=== PATIENT | female | born 1975 | race Caucasian/White ===

== ENCOUNTER 2019-01-12 10:57 | Emergency (ER) | payer SELFPAY ==
[~2019-01-12] VITALS: Ht 154.9 cm; Wt 61.2 kg
--- OUTSIDE RECORDS SUMMARY | 2019-01-12 11:01 | XMS REPORT | Continuity of Care Document ---
Author Organization Unknown Address Unknown Phone Unavailable Allergies There is no data. Medications There is no data. Problems There is no data. Procedures There is no data. Results There is no data. Encounters ACCT No. Visit Date/Time Discharge Status Pt. Type Provider Facility Loc./Unit Complaint [id number] 10/28/2018 12:40:00 10/28/2018 23:59:59 [facility] Outpatient [facility]
[2019-01-12] MEDS ORDERED: VRAYLAR (11:14)
--- NOTE | 2019-01-12 11:16 | ED EENT ---
History of Present Illness General Chief Complaint: Dental Problems/Pain Stated Complaint: DENTAL PAIN Source: patient Exam Limitations: no limitations History of Present Illness Date Seen by Provider: Jan 12, 2019 Time Seen by Provider: 11:05 Initial Comments The patient is a pleasant 43-year-old female who presents for evaluation of left upper dental pain. She states this been going on for "while". She contacted the dental office in [place] and they recommended coming to the emergency department to be started on antibiotics prior to having a tooth pulled. She has noticed a small stanton or pimple-like lesion on the gums. She is alert and oriented 4, calm, and appears to be in no distress. She denies any fevers or chills, facial swelling, difficulty swallowing, or difficulty breathing. Timing/Duration: gradual Severity: moderate Location: mouth Prearrival Treatment: no prearrival treatment Allergies and Home Medications Patient Home Medication List Home Medication List Reviewed: Yes Review of Systems Review of Systems Constitutional: no symptoms reported Eyes: No Symptoms Reported Ears: No Symptoms Reported Nose: no symptoms reported Mouth: other (dental pain) Throat: no symptoms reported Respiratory: no symptoms reported Cardiovascular: no symptoms reported Gastrointestinal: no symptoms reported Musculoskeletal: no symptoms reported Skin: no symptoms reported Neurological: No Symptoms Reported Hematologic/Lymphatic: No Symptoms Reported Immunological/Allergic: no symptoms reported All Other Systems Reviewed Negative Unless Noted: Yes Past Hrwxnzi-Szsonj-Uzspfp Hx Past Med/Social Hx: Reviewed Nursing Past Med/Soc Hx Physical Exam Height, Weight, BMI Height: '" Weight: lbs. oz. kg; BMI Method: General Appearance: WD/WN, no apparent distress Eyes: bilateral eye PERRL, bilateral eye EOMI Nose: normal inspection Mouth/Throat: other (left upper tooth with dental decay and partial fracture, there is mild gingival swelling lateral to this with a small single pustule, no fluctuance or sign of palpable abscess, no trismus, floor of mouth is soft and unremarkable) Neck: non-tender, full range of motion, supple, normal inspection Cardiovascular: regular rate, rhythm, no edema, no gallop, no JVD Respiratory: normal breath sounds, no respiratory distress Neurologic/Psychiatric: needle leader II-XII nml as tested, alert, normal mood/affect, oriented x 3 Skin: normal color, warm/dry Progress/Results/Core Measures Progress Progress Note : Progress Note @1115 - patient will be given the first dose of antibiotics here and will be sent home with additional prescriptions for antibiotics and pain medications. Encouraged the patient to make an appointment with her dentist. No indication for incision and drainage at this time. She does verbalize understanding with the plan is stable for discharge at this time. Departure Impression Primary Impression: Dental abscess Additional Impressions: Dental caries Chronic pain Disposition: HOME, SELF-CARE Condition: Stable Departure-Patient Inst. Referrals: NO,LOCAL PHYSICIAN (PCP) Primary Care Physician [facility] Patient Instructions: Fractured Tooth (DC), Dental Pain, Tooth Abscess (DC) Add. Discharge Instructions: Follow-up with your dentist in the next 1-2 days. Typically prescribed medication as directed. Return to the emergency department for new or worsening symptoms. Scripts Tramadol HCl (Ultram) 50 Mg Tablet 50 MG PO Q6H for 4 Days, TAB Prov: DOLLY CHAIREZ DO 01/12/19 Penicillin V Potassium (Penicillin V Potassium) 500 Mg Tablet 500 MG PO QID for 7 Days, #28 TAB Prov: DOLLY CHAIREZ DO 01/12/19 DOLLY CHAIREZ DO Jan 12, 2019 11:16
[2019-01-12] MEDS ORDERED: PENI500T PO (11:21)
[2019-01-12] MEDS ORDERED: TRAM-42 PO (11:22)
[2019-01-12] MEDS ORDERED: AUGMENTIN 875 MG TAB (AMOXICILLIN/CLAVULANATE) ONE (11:25)
[2019-01-12] MEDS ORDERED: PENICILLIN V K 250 MG TAB PO ONE (11:30)
[2019-01-12] MEDS ORDERED: AUGMENTIN 875 MG TAB (AMOXICILLIN/CLAVULANATE) PO SCH (11:30)
[2019-01-12 11:35] VITALS: BP 129/84
== END 2019-01-12 11:35 | disposition home or self-care (01) ==
LOC: ER FS 10:59
DX: K02.9 Dental caries, unspecified (principal); K04.7 Periapical abscess without sinus; G89.29 Other chronic pain
CPT/HCPCS: 99283

== ENCOUNTER 2019-03-13 16:30 | Emergency (ER) | payer SELFPAY ==
[~2019-03-13] VITALS: Ht 154.9 cm; Wt 61.4 kg
[~2019-03-13 16:30] MED LIST: PENI500T PO; TRAM-42 PO; VRAYLAR
[2019-03-13] MEDS ORDERED: BACITRACIN OINTMENT 28 GM TUBE TOP SCH (16:45)
--- NOTE | 2019-03-13 16:50 | ED Integumentary General ---
General Chief Complaint: Bite-Animal/Human/Insect Stated Complaint: BUG BITES Source: patient Exam Limitations: no limitations History of Present Illness Date Seen by Provider: Mar 13, 2019 Time Seen by Provider: 16:42 Initial Comments The patient is a 43-year-old female who presents for evaluation of itching skin lesions which she noticed a few days ago. The patient does admit to methamphetamine abuse within the last few days. She does state that she thought she saw some bugs crawling into her skin. She denies suicidal or homicidal thoughts and is somewhat anxious but is answering questions appropriately. She does admit to itching her skin frequently. She has a daughter at home who does not have any similar symptoms despite sharing a bed. She denies history of bedbug or scabies infections. Timing/Duration: week Severity: moderate Location: face, torso, extremities Possible Cause: no cause identified Modifying Factors: improves with scratching (Better) Associated Symptoms: denies symptoms Allergies and Home Medications Allergies Coded Allergies: No Known Drug Allergies (Unverified , 01/12/19) Home Medications Penicillin V Potassium 500 Mg Tablet, 500 MG PO QID Prescribed by: DOLLY CHAIREZ on 01/12/19 1121 Tramadol HCl 50 Mg Tablet, 50 MG PO Q6H Prescribed by: DOLLY CHAIREZ on 01/12/19 1122 Patient Home Medication List Home Medication List Reviewed: Yes Review of Systems Review of Systems Constitutional: no symptoms reported EENTM: no symptoms reported Respiratory: no symptoms reported Cardiovascular: no symptoms reported Gastrointestinal: no symptoms reported Genitourinary: no symptoms reported Musculoskeletal: no symptoms reported Skin: lesions Psychiatric/Neurological: No Symptoms Reported Endocrine: No Symptoms Reported Hematologic/Lymphatic: No Symptoms Reported All Other Systems Reviewed Negative Unless Noted: Yes Past Kgodzin-Ukjzgw-Zuibxo Hx Past Med/Social Hx: Reviewed Nursing Past Med/Soc Hx Patient Social History Recent Hopitalizations: No Seasonal Allergies Seasonal Allergies: No Past Medical History Surgeries: Yes (Ear tubes x 2, LEEP) Section, Gallbladder Respiratory: No Cardiac: No Neurological: No Genitourinary: No Gastrointestinal: No Musculoskeletal: No Endocrine: No HEENT: No Cancer: No Psychosocial: Yes Bipolar Integumentary: No Blood Disorders: No Physical Exam Vital Signs Capillary Refill : General Appearance: WD/WN, no apparent distress HEENT: PERRL/EOMI, TMs normal Neck: non-tender, full range of motion Cardiovascular: regular rate, rhythm, no JVD Respiratory: chest non-tender, lungs clear, normal breath sounds, no respiratory distress Gastrointestinal: normal bowel sounds, non tender, soft Extremities: normal range of motion, non-tender, normal inspection, no pedal edema Neurologic/Psychiatric: sod stripper II-XII nml as tested, alert, normal mood/affect, oriented x 3 Skin: normal color, warm/dry, other (multiple skin excoriations and lesions noted to the face, left neck, lower back, and extremities, these do appear consistent with methamphetamine-related sores) Progress/Results/Core Measures Progress Progress Note : Progress Note @1650 - The patient that her lesions are almost certainly related and/or caused by the methamphetamine abuse. However they could possibly be caused by something like scabies. I feel like it will benefit the patient state of mind to be treated for scabies even though this is unlikely. She'll be given a prescription for permethrin cream and has been advised to follow-up with her PCP and to return to the emergency department for new or worsening symptoms. Departure Impression Primary Impression: Methamphetamine abuse Additional Impression: Skin lesions Disposition: HOME, SELF-CARE Condition: Stable Departure-Patient Inst. Decision time for Depature: 16:50 Referrals: NO,LOCAL PHYSICIAN (PCP/Family) Primary Care Physician Patient Instructions: Drug Abuse Treatment, Drug Abuse and Drug Addiction (DC) Add. Discharge Instructions: Take the prescribed medication as directed. Return to the emergency Department immediately for new or worsening symptoms. Scripts Permethrin (Permethrin) 60 Gm Cream..g. 60 GM TP ONCE for 1 Day, TUBE Apply topically to entire body, wash off after 8-14 hours. Repeat 1 week later. Prov: DOLLY CHAIREZ DO 03/13/19 DOLLY CHAIREZ DO Mar 13, 2019 16:50
[2019-03-13] MEDS ORDERED: PERM60CR4 TP (16:57)
[2019-03-13 17:11] VITALS: BP 158/89
== END 2019-03-13 17:13 | disposition home or self-care (01) ==
LOC: EDUNIT# 16:30 → ER FS 16:31
DX: L98.9 Disorder of the skin and subcutaneous tissue, unspecified (principal); F15.10 Other stimulant abuse, uncomplicated; F31.9 Bipolar disorder, unspecified
CPT/HCPCS: 99283

== ENCOUNTER 2019-06-21 22:33 | Emergency (ER) | payer SELFPAY ==
[~2019-06-21] VITALS: Ht 154.9 cm; Wt 64.0 kg
[~2019-06-21 22:33] MED LIST changes: +PERM60CR4 TP
[2019-06-21] MEDS ORDERED: NS IV 1000 ML 1,000 ML IV ONE (23:09)
[2019-06-21 23:24] LABS: BASOPHILS # (AUTO) 0.1 10^3/uL (0.0-0.1); BASOPHILS % (AUTO) 1 % (0-10); EOSINOPHILS # (AUTO) 0.3 10^3/uL (0.0-0.3); EOSINOPHILS % (AUTO) 4 % (0-10); HEMATOCRIT 42 % (35-52); HEMOGLOBIN 13.7 G/DL (11.5-16.0); LYMPHOCYTES # (AUTO) 4.3 X 10^3 (1.0-4.0); LYMPHOCYTES % (AUTO) 45 % (12-44); MEAN CORPUSCULAR HEMOGLOBIN 30 PG (25-34); MEAN CORPUSCULAR HGB CONC 33 G/DL (32-36); MEAN CORPUSCULAR VOLUME 91 FL (80-99); MEAN PLATELET VOLUME 8.6 FL (7.4-10.4); MONOCYTES # (AUTO) 0.7 X 10^3 (0.0-1.0); MONOCYTES % (AUTO) 8 % (0-12); NEUTROPHILS # (AUTO) 4.3 X 10^3 (1.8-7.8); NEUTROPHILS % (AUTO) 44 % (42-75); PLATELET COUNT 452 10^3/uL (130-400); RED CELL DISTRIBUTION WIDTH 13.9 % (10.0-14.5); WHITE BLOOD COUNT 9.8 10^3/uL (4.3-11.0)
--- NOTE | 2019-06-21 23:25 | ED General ---
General Chief Complaint: General Problems/Pain Stated Complaint: ABD PAIN,SORES ON FACE Nursing Triage Note: c/o abd pain bloating, pain on top of her head and her face is sore, patient is crying and very anxious Nursing Sepsis Screen: No Definite Risk Source of Information: Patient Exam Limitations: No Limitations History of Present Illness Date Seen by Provider: Jun 21, 2019 Time Seen by Provider: 22:59 Initial Comments This 43-year-old woman presents to the emergency room with 2 complaints. First she has had intermittent blistering and very painful sores in the perioral area. Her primary care provider has been treating her with doxycycline and valacyclovir since May 17. She reports the lesions around her mouth initially improved but have now worsened again. She also reports a crampy abdominal pain and frequent stools for the past few days. The pain is intermittent and not particularly tender. Pain improves after bowel movements. She does not have any nausea or vomiting. She is afebrile. Patient has history of methamphetamine use and his use within the past few weeks. She is very anxious and tearful. Allergies and Home Medications Allergies Coded Allergies: No Known Drug Allergies (Unverified , 01/12/19) Home Medications Hyoscyamine Sulfate 0.125 Mg Tab.subl, 0.125 MG SL Q4H PRN for CRAMPS Prescribed by: ASHLEY THOMAS on 06/22/19 0012 Penicillin V Potassium 500 Mg Tablet, 500 MG PO QID Prescribed by: DOLLY CHAIREZ on 01/12/19 1121 Permethrin 60 Gm Cream..g., 60 GM TP ONCE Apply topically to entire body, wash off after 8-14 hours. Repeat 1 week later. Prescribed by: DOLLY CHAIREZ on 03/13/19 1657 Tramadol HCl 50 Mg Tablet, 50 MG PO Q6H Prescribed by: DOLLY CHAIREZ on 01/12/19 1122 Patient Home Medication List Home Medication List Reviewed: Yes Review of Systems Review of Systems Constitutional: no symptoms reported EENTM: see HPI Respiratory: no symptoms reported Cardiovascular: no symptoms reported Gastrointestinal: see HPI Genitourinary: no symptoms reported : No Musculoskeletal: no symptoms reported Skin: no symptoms reported Psychiatric/Neurological: See HPI Hematologic/Lymphatic: No Symptoms Reported Immunological/Allergic: no symptoms reported Past Cjjrnlj-Qndypg-Fjkmvf Hx Past Med/Social Hx: Reviewed and Corrections made Patient Social History Alcohol Use: Denies Use Recreational Drug Use: Yes Drug of Choice: methamphetamines and marijuana 2nd Hand Smoke Exposure: No Recent Foreign Travel: No Contact w/Someone Who Travel: No Recent Infectious Disease Expo: No Recent Hopitalizations: No Physical Abuse: No Sexual Abuse: No Mistreated: No Fear: No Immunizations Up To Date Tetanus Booster (TDap): Less than 5yrs PED Vaccines UTD: Yes Seasonal Allergies Seasonal Allergies: No Past Medical History Surgeries: Yes (Ear tubes x 2, LEEP) Section, Gallbladder Respiratory: No Cardiac: No Neurological: No : No Reproductive Disorders: No Genitourinary: No Gastrointestinal: No Musculoskeletal: No Endocrine: No HEENT: No Cancer: No Psychosocial: Yes (Methamphetamine abuse) Bipolar Integumentary: No Blood Disorders: No Physical Exam Vital Signs Vital Signs - First Documented 06/21/19 22:38 Temp 36.8 Pulse 108 Resp 18 B/P (MAP) 127/77 (94) Pulse Ox 99 Capillary Refill : Less Than 3 Seconds Height, Weight, BMI Height: 5'1.00" Weight: 135lbs. oz. 61.120356vd; 26.00 BMI Method:Stated General Appearance: WD/WN, Anxious (Tearful) HEENT: PERRL/EOMI, Other (Blistering and inflamed perioral lesions) Neck: Normal Inspection, Supple Respiratory: Lungs Clear, Normal Breath Sounds, No Accessory Muscle Use, No Respiratory Distress Cardiovascular: Regular Rate, Rhythm, No Edema, No Murmur Gastrointestinal: Normal Bowel Sounds, Non Tender, Soft Extremity: Normal Capillary Refill, Normal Inspection, No Pedal Edema Neurologic/Psychiatric: Alert, Oriented x3, No Motor/Sensory Deficits, window covering sales consultant II- XII Norm as Tested, Other (Anxious and tearful) Skin: Normal Color, Warm/Dry Progress/Results/Core Measures Suspected Sepsis Recent Fever Within 48 Hours: No Infection Criteria Present: None New/Unexplained Altered Menta: No Sepsis Screen: No Definite Risk SIRS Temperature: Pulse: 108 Respiratory Rate: 18 Laboratory Tests 06/21/19 22:55: White Blood Count 9.8 Blood Pressure 127 /77 Mean: 94 Laboratory Tests 06/21/19 22:55: Creatinine 0.77, Platelet Count 452H, Total Bilirubin 0.3 Results/Orders Lab Results Laboratory Tests Test 06/21/19 22:55 06/21/19 23:31 Range/Units White Blood Count 9.8 4.3-11.0 10^3/uL Red Blood Count 4.59 4.35-5.85 10^6/uL Hemoglobin 13.7 11.5-16.0 G/DL Hematocrit 42 35-52 % Mean Corpuscular Volume 91 80-99 FL Mean Corpuscular Hemoglobin 30 25-34 PG Mean Corpuscular Hemoglobin Concent 33 32-36 G/DL Red Cell Distribution Width 13.9 10.0-14.5 % Platelet Count 452 H 130-400 10^3/uL Mean Platelet Volume 8.6 7.4-10.4 FL Neutrophils (%) (Auto) 44 42-75 % Lymphocytes (%) (Auto) 45 H 12-44 % Monocytes (%) (Auto) 8 0-12 % Eosinophils (%) (Auto) 4 0-10 % Basophils (%) (Auto) 1 0-10 % Neutrophils # (Auto) 4.3 1.8-7.8 X 10^3 Lymphocytes # (Auto) 4.3 H 1.0-4.0 X 10^3 Monocytes # (Auto) 0.7 0.0-1.0 X 10^3 Eosinophils # (Auto) 0.3 0.0-0.3 10^3/uL Basophils # (Auto) 0.1 0.0-0.1 10^3/uL Sodium Level 140 135-145 MMOL/L Potassium Level 3.7 3.6-5.0 MMOL/L Chloride Level 103 98-107 MMOL/L Carbon Dioxide Level 25 21-32 MMOL/L Anion Gap 12 5-14 MMOL/L Blood Urea Nitrogen 10 7-18 MG/DL Creatinine 0.77 0.60-1.30 MG/DL Estimat Glomerular Filtration Rate > 60 BUN/Creatinine Ratio 13 Glucose Level 86 70-105 MG/DL Calcium Level 9.2 8.5-10.1 MG/DL Corrected Calcium 8.5-10.1 MG/DL Total Bilirubin 0.3 0.1-1.0 MG/DL Aspartate Amino Transf (AST/SGOT) 14 5-34 U/L Alanine Aminotransferase (ALT/SGPT) 10 0-55 U/L Alkaline Phosphatase 100 40-136 U/L C-Reactive Protein High Sensitivity 0.15 0.00-0.50 MG/DL Total Protein 8.1 6.4-8.2 GM/DL Albumin 4.8 H 3.2-4.5 GM/DL Lipase 20 8-78 U/L Serum Test, Qualitative NEGATIVE NEGATIVE Urine Color YELLOW Urine Clarity CLEAR Urine pH 6.0 5-9 Urine Specific [place] 1.010 L 1.016-1.022 Urine Protein NEGATIVE NEGATIVE Urine Glucose (UA) NEGATIVE NEGATIVE Urine Ketones NEGATIVE NEGATIVE Urine Nitrite NEGATIVE NEGATIVE Urine Bilirubin NEGATIVE NEGATIVE Urine Urobilinogen 0.2 < = 1.0 MG/DL Urine Leukocyte Esterase NEGATIVE NEGATIVE Urine RBC (Auto) NEGATIVE NEGATIVE Urine RBC NONE /HPF Urine WBC NONE /HPF Urine Squamous Epithelial Cells 0-2 /HPF Urine Crystals NONE /LPF Urine Bacteria TRACE /HPF Urine Casts NONE /LPF Urine Mucus NEGATIVE /LPF Urine Culture Indicated NO Urine Opiates Screen NEGATIVE NEGATIVE Urine Oxycodone Screen NEGATIVE NEGATIVE Urine Methadone Screen NEGATIVE NEGATIVE Urine Propoxyphene Screen NEGATIVE NEGATIVE Urine Barbiturates Screen NEGATIVE NEGATIVE Ur Tricyclic Antidepressants Screen NEGATIVE NEGATIVE Urine Phencyclidine Screen NEGATIVE NEGATIVE Urine Amphetamines Screen POSITIVE H NEGATIVE Urine Methamphetamines Screen POSITIVE H NEGATIVE Urine Benzodiazepines Screen NEGATIVE NEGATIVE Urine Cocaine Screen NEGATIVE NEGATIVE Urine Cannabinoids Screen NEGATIVE NEGATIVE My Orders Orders - ASHLEY ALVARES MD Cbc With Automated Diff (06/21/19 23:09) Comprehensive Metabolic Panel (06/21/19 23:09) Drug Screen Stat (Urine) (06/21/19 23:09) Lipase (06/21/19 23:09) Ua Culture If Indicated (06/21/19 23:09) Ed Iv/Invasive Line Start (06/21/19 23:09) Ns Iv 1000 Ml (Sodium Chloride 0.9%) (06/21/19 23:09) Hs C Reactive Protein (06/21/19 23:10) Hcg,Qualitative Serum (06/21/19 23:42) Medications Given in ED Vital Signs/I&O Capillary Refill : Less Than 3 Seconds Blood Pressure Mean: 94 Progress Note : Progress Note Workup was unremarkable except for positive drug screen. Patient states she does intend to follow-up with the [facility] substance abuse clinic for treatment. Labs did not suggest significant bacterial infection. I believe her perioral lesions are due to herpetic outbreak. I've encouraged her to stay on the valacyclovir but to stop the doxycycline as the doxycycline seems to be triggering bowel irritation. I've suggested using Levsin for cramping and probiotics. Since patient is having recurrent HSV outbreaks and has risk factors, I suggested she discuss screening for HIV and hepatitis C with her primary care provider. Departure Impression Primary Impression: Recurrent herpes labialis Additional Impressions: Abdominal cramping Methamphetamine abuse Disposition: 01 HOME, SELF-CARE Condition: Improved Departure-Patient Inst. Decision time for Depature: 00:09 Referrals: NO,LOCAL PHYSICIAN (PCP/Family) Primary Care Physician Patient Instructions: Cold Sores (Oral Herpes) Add. Discharge Instructions: Continue taking valacyclovir as prescribed. Based on your labwork you likely do not have any bacterial infection at this time. You may stop doxycycline as it may be causing bowel cramping and upset stomach. Using probiotics purchased [id number] may help reduce your bowel symptoms. You may use Levsin (hyoscyamine) as prescribed for bowel cramping. Dissolve a tablet under the tongue every 4 hours as needed. Follow-up with your primary care provider soon as possible. Discussed referral for substance abuse treatment. Also discuss testing for hepatitis C and HIV due to risk factors we discussed. You may use ibuprofen up to 600 mg every 6 hours as needed for pain. You may also take Tylenol (acetaminophen) up to 1000 mg every 6 hours as needed. You may also use topical anesthetics for cold sores purchased [id number]. Return to care if you have worsening symptoms despite these therapies. All discharge instructions reviewed with patient and/or family. Voiced understanding. Scripts Hyoscyamine Sulfate (Levsin-Sl) 0.125 Mg Tab.subl 0.125 MG SL Q4H PRN for CRAMPS, #10 TAB 0 Refills Prov: ASHLEY ALVARES MD 06/22/19 Copy Copies To 1: MAKSIM YAÑEZ JOSHUA T MD Jun 21, 2019 23:25
[2019-06-21 23:36] LABS: ALANINE AMINOTRANSFERASE 10 U/L (0-55); ALBUMIN 4.8 GM/DL (3.2-4.5); ALKALINE PHOSPHATASE 100 U/L (40-136); BILIRUBIN,TOTAL 0.3 MG/DL (0.1-1.0); BUN/CREATININE RATIO 13; CALCIUM 9.2 MG/DL (8.5-10.1); CARBON DIOXIDE 25 MMOL/L (21-32); CHLORIDE 103 MMOL/L (98-107); CREATININE SERUM 0.77 MG/DL (0.60-1.30); GFR ESTIMATED > 60; GLUCOSE 86 MG/DL (70-105); LIPASE 20 U/L (8-78); POTASSIUM 3.7 MMOL/L (3.6-5.0); SODIUM 140 MMOL/L (135-145); TOTAL PROTEIN 8.1 GM/DL (6.4-8.2)
[2019-06-21 23:43] LABS: BILIRUBIN,URINE NEGATIVE (NEGATIVE); CLARITY,URINE CLEAR; COLOR,URINE YELLOW; GLUCOSE, URINE (UA) NEGATIVE (NEGATIVE); KETONES,URINE NEGATIVE (NEGATIVE); LEUKOCYTE ESTERASE ,URINE NEGATIVE (NEGATIVE); NITRITE,URINE NEGATIVE (NEGATIVE); PROTEIN,URINE NEGATIVE (NEGATIVE)
[2019-06-21 23:55] LABS: AMPHETAMINE SCREEN, URINE POSITIVE (NEGATIVE); BACTERIA,URINE TRACE /HPF; BARBITURATE SCREEN URINE NEGATIVE (NEGATIVE); BENZODIAZEPINES SCREEN URINE NEGATIVE (NEGATIVE); CANNABINOID SCREEN, URINE NEGATIVE (NEGATIVE); COCAINE SCREEN URINE NEGATIVE (NEGATIVE); METHADONE STAT NEGATIVE (NEGATIVE); METHAMPHETAMINE SCREEN URINE S POSITIVE (NEGATIVE); OPIATE SCREEN URINE NEGATIVE (NEGATIVE); OXYCODONE STAT NEGATIVE (NEGATIVE); PROPOXYPHENE STAT NEGATIVE (NEGATIVE); SQUAMOUS EPITHELIAL CELL,UR 0-2 /HPF; TRICYCLIC ANTIDEPRESSANTS SCRE NEGATIVE (NEGATIVE)
[2019-06-22] MEDS ORDERED: HYOS0.1283 SL (00:12)
[2019-06-22 00:25] VITALS: BP 125/76
== END 2019-06-22 00:25 | disposition home or self-care (01) ==
LOC: EDUNIT# 22:33 → ER 22:35
DX: B00.1 Herpesviral vesicular dermatitis (principal); F15.10 Other stimulant abuse, uncomplicated; F31.9 Bipolar disorder, unspecified
CPT/HCPCS: 36415; 80053; 80306; 81000; 83690; 84703; 85025; 86141